=== PATIENT | male | born 1960 | race Caucasian/White ===

== ENCOUNTER 2018-05-18 12:19 | Emergency (ER) | payer SELFPAY ==
[~2018-05-18] VITALS: Ht 182.9 cm; Wt 81.4 kg
[~2018-05-18 12:19] MED LIST: IBUPROFEN600 MG PO; NAPROSYN500 MG OR; PENICILLIN VK250 MG PO; TRAMADOL HCL50 MG PO
[2018-05-18] MEDS ORDERED: KEFLEX500 M1 PO (14:14)
[2018-05-18] MEDS ORDERED: BACTROBAN TOP (14:14)
[2018-05-18 14:20] VITALS: BP 166/94
== END 2018-05-18 14:33 | disposition home or self-care (01) | DRG 566 ==
LOC: ED 12:19
DX: T87.89 Other complications of amputation stump (principal); L98.499 Non-pressure chronic ulcer of skin of other sites with unspecified severity; F17.210 Nicotine dependence, cigarettes, uncomplicated; Y83.5 Amputation of limb(s) as the cause of abnormal reaction of the patient, or of later complication, without mention of misadventure at the time of the procedure

== ENCOUNTER 2020-02-14 10:21 | Emergency (ER) | payer SELFPAY ==
[~2020-02-14] VITALS: Ht 182.9 cm; Wt 80.0 kg
[~2020-02-14 10:21] MED LIST changes: +BACTROBAN TOP; +KEFLEX500 M1 PO
[2020-02-14 11:08] LABS: HEMATOCRIT 43.2 % (39.0-50.0); HEMOGLOBIN 14.6 g/dl (14.0-18.0); IMMATURE GRANULOCYTES 0.3 % (0.0-5.0); MEAN CELL VOLUME 92.5 fL CALC (80.0-100.0); MEAN CORPUSCULAR HGB 31.3 pG CALC (26.0-32.0); MEAN CORPUSCULAR HGB CONC 33.8 g/dL CAL (32.0-36.0); NEUT# 7.66 thou/uL (1.82-7.42); RED BLOOD COUNT 4.67 mill/uL (4.70-6.10); RED CELL DISTRI WIDTH 12.6 % (11.5-15.5)
[2020-02-14 11:26] LABS: ALBUMIN 4.8 g/dL (3.2-5.0); ALKALINE PHOSPHATASE 81 u/l (38-126); BUN 26 mg/dL (9-20); BUN/CREATININE RATIO 23 (12-20 (CALC)); CARBON DIOXIDE 26 mmol/l (22-30); CHLORIDE 106 mmol/l (95-108); CREATININE 1.1 mg/dL (0.7-1.3); GFR > 60 ML/MIN (>=60 (CALC)); GFR FOR AFR.AMER. > 60 ML/MIN (>=60 (CALC)); SODIUM 143 mmol/l (137-146)
[2020-02-14 11:27] LABS: ANION GAP 14 (6-22 (CALC)); BILIRUBIN, TOTAL 1.1 mg/dL (0.0-1.4); POTASSIUM 3.2 mmol/l (3.5-5.1); SGOT/AST 445 u/l (17-59); TOTAL PROTEIN 8.8 g/dL (6.3-8.2)
[2020-02-14 11:59] LABS: ETHYL ALCOHOL 0 mg/dl (0-30)
[2020-02-14 13:12] LABS: URINE BLOOD DIPSTICK LARGE (NEGATIVE); URINE GLUCOSE - DIPSTICK NEGATIVE (NEGATIVE); URINE KETONE 15 mg/dL (NEGATIVE); URINE LEUK ESTERASE NEGATIVE (NEGATIVE); URINE NITRITE - DIPSTICK NEGATIVE (Negative); URINE PROTEIN - DIPSTICK 100 mg/dL (NEG-TRACE); URINE SPECIFIC GRAVITY >=1.030; URINE UROBILINOGEN - DIPSTICK 0.2 E.U./dL (0.2)
[2020-02-14 13:14] LABS: URINE BILIRUBIN - DIPSTICK MODERATE (NEGATIVE); URINE COLOR DK. YELLOW
[2020-02-14 13:15] LABS: URINE EPITHELIAL CELLS FEW EPI/hpf (0-FEW)
[2020-02-14 13:17] LABS: URINE MUCUS MANY hpf (NONE-FEW)
[2020-02-14] MEDS ORDERED: METRONIDAZOL500 MG PO (14:38)
[2020-02-14] MEDS ORDERED: CIPROFLOXACN500 MG PO (14:38)
[2020-02-14 14:41] VITALS: BP 149/81
== END 2020-02-14 14:41 | disposition home or self-care (01) | DRG 914 ==
LOC: ED 10:21
PROVIDERS: Emergency Medicine
DX: T14.8XXA Other injury of unspecified body region, initial encounter (principal); R74.8 Abnormal levels of other serum enzymes; F19.10 Other psychoactive substance abuse, uncomplicated; K57.32 Diverticulitis of large intestine without perforation or abscess without bleeding; F17.200 Nicotine dependence, unspecified, uncomplicated; X58.XXXA Exposure to other specified factors, initial encounter